=== PATIENT | male | born 1990 | race Caucasian/White ===

== ENCOUNTER → 2016-07-14 | Outpatient (REF) | LOC: WSOH 12:47 | DX: Z02.89 Encounter for other administrative examinations (principal) ==

== ENCOUNTER → 2016-07-23 | Outpatient (REF) | LOC: WSOH 08:31 | DX: Z00.00 Encounter for general adult medical examination without abnormal findings (principal) ==

== ENCOUNTER → 2017-05-21 | Outpatient (CLI) | payer OTHER | LOC: COL.RAD 11:46 | DX: N50.89 Other specified disorders of the male genital organs (principal) ==